=== PATIENT | female | born 1965 | race Caucasian/White ===

== ENCOUNTER 2016-08-21 15:55 | Inpatient (IN) | payer MEDICAID ==
[~2016-08-21] VITALS: Ht 167.6 cm; Wt 101.1 kg
[2016-08-21] MEDS ORDERED: DULO30CA2 PO (18:12)
[2016-08-21] MEDS ORDERED: SUMA100T PO (18:12)
[2016-08-21] MEDS ORDERED: VENL-67 PO (18:12)
[2016-08-21] MEDS ORDERED: PANT40TA25 PO (18:12)
[2016-08-21] MEDS ORDERED: OMEP20 PO (18:12)
[2016-08-21] MEDS ORDERED: GABA-531 PO (18:12)
[2016-08-21] MEDS ORDERED: TOPI100 PO (18:12)
[2016-08-21] MEDS ORDERED: CELE100 PO (18:12)
[2016-08-21] MEDS ORDERED: TRAM50TA4 PO (18:12)
[2016-08-21] MEDS ORDERED: HYDR-3971 PO (18:12)
[2016-08-21] MEDS ORDERED: TELM1TAB6 PO (18:12)
[2016-08-21] MEDS ORDERED: TAPE50TA9 PO (18:12)
[2016-08-21] MEDS ORDERED: LORA10TA7 PO (18:12)
[2016-08-21] MEDS ORDERED: ATOR40TA28 PO (18:12)
[2016-08-21] MEDS ORDERED: RANI150T7 PO (18:12)
[2016-08-21] MEDS ORDERED: MET750 PO (18:12)
[2016-08-21] MEDS ORDERED: BUTA1CAP53 PO (18:12)
[2016-08-21] MEDS ORDERED: DICL50TA9 PO (18:12)
[2016-08-21 18:36] LABS: BASOPHILS % (AUTO) 0.2 % (0.0-2.0); EOSINOPHILS % (AUTO) 1.6 % (1.0-6.0); HEMATOCRIT 39.4 % (36-46); HEMOGLOBIN 12.9 g/dL (12.0-16.0); LYMPHOCYTES # (AUTO) 3.4 K/uL (1.0-4.8); LYMPHOCYTES % (AUTO) 42.2 % (22.0-44.0); MEAN CORPUSCULAR HEMOGLOBIN 31.1 pg (26.0-34.0); MEAN CORPUSCULAR HGB CONC 32.8 G/dL (31.0-37.0); MEAN CORPUSCULAR VOLUME 95 fL (80-100); MONOCYTES # (AUTO) 0.5 K/uL (0.1-1.0); MONOCYTES % (AUTO) 6.4 % (2.0-9.0); NEUTROPHILS # (AUTO) 3.9 K/uL (1.8-7.7); NEUTROPHILS % (AUTO) 49.6 % (40.0-70.0); PLATELET COUNT (AUTO) 346 K/uL (150-450); RED BLOOD CELL COUNT(AUTO) 4.16 MIL/uL (4.00-5.20); RED CELL DISTRIBUTION WIDTH 13.2 % (11.5-14.5); WHITE BLOOD COUNT (AUTO) 7.9 K/uL (4.5-11.0)
[2016-08-21 18:49] LABS: ANION GAP 8 mmol/L (8-16); CALCIUM, TOTAL 8.8 mg/dL (8.8-10.5); CARBON DIOXIDE 30 mmol/L (22-29); CHLORIDE 103 mmol/L (98-107); CREATININE 0.88 mg/dL (0.60-1.30); GLOMERULAR FILTR. RATE CALC > 60 mL/min (>60); POTASSIUM 3.4 mmol/L (3.5-5.1); SODIUM SERUM 141 mmol/L (136-145); UREA NITROGEN, BLOOD 10 mg/dL (7-18)
[2016-08-21 18:54] LABS: ALANINE AMINOTRANSFERASE 42 U/L (12-78); ALBUMIN 3.9 g/dL (3.4-5.0); ASPARTATE AMINOTRANSFERASE 17 U/L (15-37); BILIRUBIN,TOTAL 0.3 mg/dL (0.1-1.0); TOTAL PROTEIN, SERUM 7.6 g/dL (6.4-8.2)
[2016-08-21] MEDS ORDERED: HYDROCODONE/ACETAMINOPHEN 5-325 MG TABLET PO ONE (19:45)
[2016-08-21] MEDS ORDERED: POTASSIUM CHLORIDE 20 MEQ ER TABLET PO ONE (19:45)
[2016-08-21] MEDS ORDERED: LORazepam 2 MG TABLET PO PRN (20:00)
[2016-08-21] MEDS ORDERED: ZOLPIDEM TARTRATE 10 MG TABLET PO PRN (20:00)
[2016-08-21] MEDS ORDERED: HALOPERIDOL 5 MG TABLET PO PRN (20:00)
[2016-08-21 22:26] VITALS: BP 154/88
[2016-08-21 23:05] LABS: APPEARANCE,URINE CLOUDY (CLEAR); GLUCOSE, URINE (UA) NEGATIVE (NEGATIVE); KETONES,URINE NEGATIVE (NEGATIVE); LEUKOCYTE ESTERASE ,URINE MODERATE (NEGATIVE); OCCULT BLOOD,URINE NEGATIVE (NEGATIVE); PH,URINE 6.5 (5.0-8.0); PROTEIN,URINE NEGATIVE (NEGATIVE)
[2016-08-21 23:09] LABS: ADD UA MICROSCOPIC YES
[2016-08-21 23:17] LABS: RBC,URINE 0-2 /HPF (0-2); SQUAMOUS EPITHELIAL CELL,UR Rare /LPF (None Seen)
[2016-08-22] MEDS ORDERED: INFLUENZA VIRUS VACCINE QVS 2016-17 (3YR+)/PF 60 MCG/0.5 ML SYRINGE IM ONE (01:00)
[2016-08-22 08:12] VITALS: BP 120/73
[2016-08-22] MEDS ORDERED: OMEPRAZOLE 20 MG CAPSULE PO SCH (09:00)
[2016-08-22] MEDS: LORATADINE 10 MG TABLET PO SCH (09:00)
[2016-08-22] MEDS: PANTOPRAZOLE SODIUM 40 MG DR TABLET PO SCH ×2 (09:00→14:02)
[2016-08-22] MEDS: TELMISARTAN 40 MG TABLET PO SCH (09:00)
[2016-08-22] MEDS: ATORVASTATIN CALCIUM 40 MG TABLET PO SCH (09:00)
[2016-08-22] MEDS ORDERED: ACETAMINOPHEN 325 MG TABLET PO PRN (12:45)
[2016-08-22] MEDS: LOPERAMIDE HCL 2 MG CAPSULE PO PRN ×3 (14:03→17:40)
[2016-08-22] MEDS: IBUPROFEN 600 MG TABLET PO PRN ×2 (14:04→17:40)
[2016-08-22 17:38] VITALS: BP 137/87
[2016-08-23 02:45] VITALS: BP 148/99
[2016-08-23] MEDS: LOPERAMIDE HCL 2 MG CAPSULE PO PRN ×3 (02:47→08:22)
[2016-08-23] MEDS: TELMISARTAN 40 MG TABLET PO SCH (08:23)
[2016-08-23] MEDS: VENLAFAXINE HCL 75 MG ER CAPSULE PO SCH (08:23)
[2016-08-23] MEDS: ATORVASTATIN CALCIUM 40 MG TABLET PO SCH (08:23)
[2016-08-23] MEDS: LORATADINE 10 MG TABLET PO SCH (08:23)
[2016-08-23] MEDS: PANTOPRAZOLE SODIUM 40 MG DR TABLET PO SCH (08:23)
[2016-08-23] MEDS: ARIPiprazole 2 MG TABLET PO SCH (08:23)
[2016-08-23 08:47] VITALS: BP 138/86
[2016-08-23 16:45] VITALS: BP 140/74
[2016-08-24 08:42] VITALS: BP 134/76
[2016-08-24] MEDS: VENLAFAXINE HCL 75 MG ER CAPSULE PO SCH (08:52)
[2016-08-24] MEDS: PANTOPRAZOLE SODIUM 40 MG DR TABLET PO SCH (08:52)
[2016-08-24] MEDS: ARIPiprazole 2 MG TABLET PO SCH (08:52)
[2016-08-24] MEDS: TELMISARTAN 40 MG TABLET PO SCH (08:52)
[2016-08-24] MEDS: ATORVASTATIN CALCIUM 40 MG TABLET PO SCH (08:52)
[2016-08-24] MEDS: LORATADINE 10 MG TABLET PO SCH (08:53)
[2016-08-24] MEDS: LOPERAMIDE HCL 2 MG CAPSULE PO PRN (09:57)
[2016-08-24] MEDS: IBUPROFEN 600 MG TABLET PO PRN ×2 (13:57→20:36)
[2016-08-24 17:00] VITALS: BP 132/73
[2016-08-25] MEDS ORDERED: ARIP2 PO (08:28)
[2016-08-25] MEDS ORDERED: VENL-67 PO (08:29)
[2016-08-25 08:53] VITALS: BP 137/90
[2016-08-25] MEDS: VENLAFAXINE HCL 75 MG ER CAPSULE PO SCH (09:10)
[2016-08-25] MEDS: IBUPROFEN 600 MG TABLET PO PRN (09:11)
[2016-08-25] MEDS: PANTOPRAZOLE SODIUM 40 MG DR TABLET PO SCH (09:11)
[2016-08-25] MEDS: ATORVASTATIN CALCIUM 40 MG TABLET PO SCH (09:11)
[2016-08-25] MEDS: ARIPiprazole 2 MG TABLET PO SCH (09:12)
[2016-08-25] MEDS: LORATADINE 10 MG TABLET PO SCH (09:12)
[2016-08-25] MEDS: TELMISARTAN 40 MG TABLET PO SCH (09:12)
[2016-08-25] MEDS: LOPERAMIDE HCL 2 MG CAPSULE PO PRN (09:14)
[2016-08-25 09:17] VITALS: BP 140/91
[2016-08-25 10:11] VITALS: BP 135/80
== END 2016-08-25 12:30 | disposition home or self-care (01) | DRG 751 ==
LOC: EEVIPCON 15:58 → EMS 15:58 → 3EI 20:08
PROVIDERS: ADMIT Psychiatry & Neurology Psychiatry; ATTEND Psychiatry & Neurology Psychiatry
DX: F33.2 Major depressive disorder, recurrent severe without psychotic features (principal); R45.851 Suicidal ideations; I10 Essential (primary) hypertension; G43.909 Migraine, unspecified, not intractable, without status migrainosus; F41.9 Anxiety disorder, unspecified; E78.5 Hyperlipidemia, unspecified; E66.9 Obesity, unspecified; K21.9 Gastro-esophageal reflux disease without esophagitis; E87.6 Hypokalemia; R19.7 Diarrhea, unspecified; J30.9 Allergic rhinitis, unspecified; Z28.21 Immunization not carried out because of patient refusal; Z79.899 Other long term (current) drug therapy; Z79.891 Long term (current) use of opiate analgesic; Z98.890 Other specified postprocedural states; Z68.36 Body mass index [BMI] 36.0-36.9, adult; Z98.84 Bariatric surgery status; Z62.819 Personal history of unspecified abuse in childhood; Z91.5 Personal history of self-harm; Z81.8 Family history of other mental and behavioral disorders
CPT/HCPCS: 87086; 99285; G0480

== ENCOUNTER 2018-09-24 13:47 | Inpatient (IN) | payer MEDICAID, OTHER ==
[~2018-09-24] VITALS: Ht 167.6 cm; Wt 101.2 kg
[~2018-09-24 13:47] MED LIST: ASEN5TAB6 SL; ATOR40TA28 PO; BUPR-93 PO; DIVA-78 PO; GABA-531 PO; LORA10TA7 PO; LOSA25TA41 PO; MULT-1239 PO; PANT40TA25 PO; TOPI100T37 PO; TRAZ150 PO; VENL-67 PO
[2018-09-24] MEDS ORDERED: OMEP20 PO (14:31)
[2018-09-24] MEDS ORDERED: GABA-533 PO (14:31)
[2018-09-24 15:12] LABS: BASOPHILS % (AUTO) 0.6 % (0.0-2.0); HEMOGLOBIN 13.4 g/dL (12.0-16.0); LYMPHOCYTES # (AUTO) 2.8 K/uL (1.0-4.8); MEAN CORPUSCULAR HEMOGLOBIN 31.3 pg (26.0-34.0); MEAN CORPUSCULAR HGB CONC 33.6 G/dL (31.0-37.0); MEAN CORPUSCULAR VOLUME 93 fL (80-100); MONOCYTES # (AUTO) 0.5 K/uL (0.1-1.0); MONOCYTES % (AUTO) 7.2 % (2.0-9.0); NEUTROPHILS # (AUTO) 4.1 K/uL (1.8-7.7); NEUTROPHILS % (AUTO) 54.2 % (40.0-70.0); PLATELET COUNT (AUTO) 315 K/uL (150-450); RED CELL DISTRIBUTION WIDTH 13.8 % (11.5-14.5)
[2018-09-24 15:27] LABS: ANION GAP 11 mmol/L (8-16); CALCIUM, TOTAL 8.9 mg/dL (8.8-10.5); CARBON DIOXIDE 26 mmol/L (22-29); CHLORIDE 105 mmol/L (98-107); CREATININE 0.81 mg/dL (0.60-1.30); GLOMERULAR FILTR. RATE CALC > 60 mL/min (>60); GLUCOSE,RANDOM 89 mg/dL (70-110); POTASSIUM 3.4 mmol/L (3.5-5.1); SODIUM SERUM 142 mmol/L (136-145); UREA NITROGEN, BLOOD 26 mg/dL (7-18)
[2018-09-24 15:38] LABS: ALANINE AMINOTRANSFERASE 34 U/L (12-78); ALBUMIN 3.9 g/dL (3.4-5.0); ALKALINE PHOSPHATASE 91 U/L (46-116); ASPARTATE AMINOTRANSFERASE 18 U/L (15-37); BILIRUBIN,TOTAL 0.3 mg/dL (0.1-1.0); TOTAL PROTEIN, SERUM 7.4 g/dL (6.4-8.2)
[2018-09-24 16:07] LABS: AMPHET/METH SCREEN,URINE NEGATIVE (NEGATIVE); BARBITURATE SCREEN, URINE NEGATIVE (NEGATIVE); BENZODIAZEPINES SCREEN,URINE NEGATIVE (NEGATIVE); CANNABINOID SCREEN,URINE NEGATIVE (NEGATIVE); COCAINE SCREEN,URINE NEGATIVE (NEGATIVE); METHADONE SCREEN, URINE NEGATIVE (NEGATIVE); OPIATE SCREEN,URINE NEGATIVE (NEGATIVE)
[2018-09-24 16:12] LABS: PHENCYCLIDINE SCREEN,URINE NEGATIVE (NEGATIVE)
[2018-09-24] MEDS ORDERED: HALOPERIDOL 5 MG TABLET PO ONE (16:45)
[2018-09-24] MEDS ORDERED: ZOLPIDEM TARTRATE 10 MG TABLET PO PRN (17:30)
[2018-09-24] MEDS ORDERED: HALOPERIDOL 5 MG TABLET PO PRN (17:30)
[2018-09-24] MEDS ORDERED: IBUPROFEN 400 MG TABLET PO PRN (20:45)
[2018-09-24] MEDS ORDERED: ALBUTEROL SULFATE HFA 90 MCG/PUFF 8 GM INHALER IH PRN (20:45)
[2018-09-24] MEDS ORDERED: MAG HYDROX/AL HYDROX/SIMETH ES 30 ML SUSPENSION UDCUP PO PRN (20:45)
[2018-09-24] MEDS ORDERED: DOCUSATE SODIUM 100 MG CAPSULE PO PRN (20:45)
[2018-09-24] MEDS ORDERED: MAGNESIUM HYDROXIDE SUSPENSION 30 ML UDCUP PO PRN (20:45)
[2018-09-24] MEDS ORDERED: ONDANSETRON HCL 4 MG TABLET PO PRN (20:45)
[2018-09-24] MEDS ORDERED: CloNIDine HCL 0.1 MG TABLET PO PRN (20:45)
[2018-09-24] MEDS ORDERED: NICOTINE 14 MG/24 HOUR PATCH TD PRN (20:45)
[2018-09-24] MEDS ORDERED: PETROLATUM,WHITE 28 GM JELLY TP PRN (20:45)
[2018-09-24] MEDS ORDERED: ACETAMINOPHEN 325 MG TABLET PO PRN (20:45)
[2018-09-24] MEDS ORDERED: GuaiFENesin/D-METHORPHAN [SUGAR-FREE] 200-20MG/10 ML SYRUP UDCUP PO PRN (20:45)
[2018-09-24] MEDS ORDERED: LOPERAMIDE HCL 2 MG CAPSULE PO PRN (20:45)
[2018-09-24 22:38] VITALS: BP 124/84
[2018-09-25 00:16] VITALS: BP 102/64
[2018-09-25 08:07] VITALS: BP 122/72
[2018-09-25] MEDS: ATORVASTATIN CALCIUM 40 MG TABLET PO SCH (08:21)
[2018-09-25] MEDS: LOSARTAN POTASSIUM 25 MG TABLET PO SCH (08:21)
[2018-09-25 08:52] LABS: BASOPHILS % (AUTO) 0.5 % (0.0-2.0); EOSINOPHILS % (AUTO) 1.5 % (1.0-6.0); HEMATOCRIT 41.4 % (36-46); HEMOGLOBIN 13.6 g/dL (12.0-16.0); LYMPHOCYTES # (AUTO) 3.4 K/uL (1.0-4.8); LYMPHOCYTES % (AUTO) 46.4 % (22.0-44.0); MEAN CORPUSCULAR HEMOGLOBIN 31.1 pg (26.0-34.0); MEAN CORPUSCULAR HGB CONC 32.9 G/dL (31.0-37.0); MEAN CORPUSCULAR VOLUME 95 fL (80-100); MONOCYTES # (AUTO) 0.5 K/uL (0.1-1.0); MONOCYTES % (AUTO) 6.9 % (2.0-9.0); NEUTROPHILS # (AUTO) 3.2 K/uL (1.8-7.7); NEUTROPHILS % (AUTO) 44.7 % (40.0-70.0); PLATELET COUNT (AUTO) 317 K/uL (150-450); RED BLOOD CELL COUNT(AUTO) 4.38 MIL/uL (4.00-5.20); RED CELL DISTRIBUTION WIDTH 13.8 % (11.5-14.5)
[2018-09-25 09:00] LABS: HEMOGLOBIN A1C 5.7 % (4.5-6.2)
[2018-09-25 09:12] LABS: ALANINE AMINOTRANSFERASE 28 U/L (12-78); ALBUMIN 3.6 g/dL (3.4-5.0); ALKALINE PHOSPHATASE 86 U/L (46-116); ANION GAP 7 mmol/L (8-16); ASPARTATE AMINOTRANSFERASE 14 U/L (15-37); BILIRUBIN,TOTAL 0.2 mg/dL (0.1-1.0); CALCIUM, TOTAL 9.1 mg/dL (8.8-10.5); CARBON DIOXIDE 31 mmol/L (22-29); CHLORIDE 108 mmol/L (98-107); CHOL/HDL RATIO 5.3 (3.9-5.7); CHOLESTEROL 252 mg/dL (131-200); CREATININE 0.83 mg/dL (0.60-1.30); GLOMERULAR FILTR. RATE CALC > 60 mL/min (>60); GLUCOSE,RANDOM 82 mg/dL (70-110); HDL CHOLESTEROL 48 mg/dL (40-60); LDL CHOL (CALC.) 160 mg/dL (0-130); POTASSIUM 4.3 mmol/L (3.5-5.1); SODIUM SERUM 146 mmol/L (136-145); THYROID STIMULATING HORMONE 1.39 uIU/mL (0.36-3.74); TRIGLYCERIDES 220 mg/dL (15-150); UREA NITROGEN, BLOOD 28 mg/dL (7-18)
[2018-09-25] MEDS: BuPROPion HCL XL 150 MG ER TABLET PO SCH (12:09)
[2018-09-25] MEDS: VENLAFAXINE HCL 150 MG ER CAPSULE PO SCH (12:09)
[2018-09-25] MEDS: ASENAPINE 10 MG SUBLINGUAL TABLET SL SCH ×2 (12:09→17:14)
[2018-09-25] MEDS: GABAPENTIN 300 MG CAPSULE PO SCH ×2 (13:23→17:14)
[2018-09-25 16:30] VITALS: BP 113/74
[2018-09-25] MEDS: TraZODone HCL 100 MG TABLET PO SCH (21:40)
[2018-09-25] MEDS: MIRTAZAPINE 30 MG TABLET PO SCH (21:40)
[2018-09-25] MEDS: DIVALPROEX SODIUM 500 MG ER TABLET PO SCH (21:41)
[2018-09-26 01:07] VITALS: BP 110/68
[2018-09-26 08:15] VITALS: BP 119/73
[2018-09-26] MEDS: ASENAPINE 10 MG SUBLINGUAL TABLET SL SCH ×2 (08:45→16:09)
[2018-09-26] MEDS: GABAPENTIN 300 MG CAPSULE PO SCH ×3 (08:45→16:09)
[2018-09-26] MEDS: BuPROPion HCL XL 150 MG ER TABLET PO SCH (08:45)
[2018-09-26] MEDS: ATORVASTATIN CALCIUM 40 MG TABLET PO SCH (08:46)
[2018-09-26] MEDS: LOSARTAN POTASSIUM 25 MG TABLET PO SCH (08:47)
[2018-09-26] MEDS: VENLAFAXINE HCL 150 MG ER CAPSULE PO SCH (09:08)
[2018-09-26] MEDS: LORazepam 2 MG TABLET PO PRN ×2 (13:49→18:22)
[2018-09-26 16:07] VITALS: BP 118/77
[2018-09-26] MEDS: MIRTAZAPINE 30 MG TABLET PO SCH (20:45)
[2018-09-26] MEDS: DIVALPROEX SODIUM 500 MG ER TABLET PO SCH (20:45)
[2018-09-26] MEDS: TraZODone HCL 100 MG TABLET PO SCH (20:45)
[2018-09-27 00:28] VITALS: BP 121/68
[2018-09-27 08:17] VITALS: BP 119/68
[2018-09-27 08:36] LABS: ANION GAP 6 mmol/L (8-16); CARBON DIOXIDE 31 mmol/L (22-29); CHLORIDE 109 mmol/L (98-107); CREATININE 0.73 mg/dL (0.60-1.30); GLOMERULAR FILTR. RATE CALC > 60 mL/min (>60); GLUCOSE,RANDOM 83 mg/dL (70-110); POTASSIUM 4.2 mmol/L (3.5-5.1); SODIUM SERUM 146 mmol/L (136-145); UREA NITROGEN, BLOOD 25 mg/dL (7-18)
[2018-09-27] MEDS: GABAPENTIN 300 MG CAPSULE PO SCH ×2 (08:50→13:37)
[2018-09-27] MEDS: BuPROPion HCL XL 150 MG ER TABLET PO SCH (08:50)
[2018-09-27] MEDS: ATORVASTATIN CALCIUM 40 MG TABLET PO SCH (08:51)
[2018-09-27] MEDS: LOSARTAN POTASSIUM 25 MG TABLET PO SCH (08:51)
[2018-09-27] MEDS: ASENAPINE 10 MG SUBLINGUAL TABLET SL SCH (08:51)
[2018-09-27] MEDS: VENLAFAXINE HCL 150 MG ER CAPSULE PO SCH (08:51)
[2018-09-27] MEDS ORDERED: ASEN10TA8 SL (11:02)
[2018-09-27] MEDS ORDERED: DIVA500T52 PO (11:03)
[2018-09-27] MEDS ORDERED: MIRT30 PO (11:04)
[2018-09-27] MEDS ORDERED: TRAZ-220 PO (11:07)
[2018-09-27] MEDS ORDERED: VENL-68 PO (11:09)
== END 2018-09-27 14:30 | disposition home or self-care (01) | DRG 754 ==
LOC: EMS 13:49 → B3A 18:46 → B2S 20:22
PROVIDERS: ADMIT Psychiatry & Neurology Child & Adolescent Psychiatry; ATTEND Psychiatry & Neurology Child & Adolescent Psychiatry
DX: F32.9 Major depressive disorder, single episode, unspecified (principal); E87.0 Hyperosmolality and hypernatremia; R45.851 Suicidal ideations; E78.00 Pure hypercholesterolemia, unspecified; E78.5 Hyperlipidemia, unspecified; E87.6 Hypokalemia; F43.10 Post-traumatic stress disorder, unspecified; G43.909 Migraine, unspecified, not intractable, without status migrainosus; I10 Essential (primary) hypertension; J30.2 Other seasonal allergic rhinitis; K21.9 Gastro-esophageal reflux disease without esophagitis; M19.90 Unspecified osteoarthritis, unspecified site; M81.0 Age-related osteoporosis without current pathological fracture; Z98.84 Bariatric surgery status
CPT/HCPCS: 83036; 84443; G0480

== ENCOUNTER 2018-10-26 12:17 | Inpatient (IN) | payer MEDICAID, OTHER ==
[~2018-10-26] VITALS: Ht 167.6 cm; Wt 106.1 kg
[~2018-10-26 12:17] MED LIST changes: +ASEN10TA8 SL; -ASEN5TAB6 SL; -DIVA-78 PO; +DIVA500T52 PO; -LORA10TA7 PO; +MIRT30 PO; -MULT-1239 PO; -PANT40TA25 PO; -TOPI100T37 PO; +TRAZ-220 PO; -TRAZ150 PO; -VENL-67 PO; +VENL-68 PO
[2018-10-26 13:11] LABS: BASOPHILS % (AUTO) 0.6 % (0.0-2.0); EOSINOPHILS % (AUTO) 1.7 % (1.0-6.0); HEMATOCRIT 39.7 % (36-46); HEMOGLOBIN 13.1 g/dL (12.0-16.0); LYMPHOCYTES # (AUTO) 4.1 K/uL (1.0-4.8); LYMPHOCYTES % (AUTO) 52.3 % (22.0-44.0); MEAN CORPUSCULAR HEMOGLOBIN 30.9 pg (26.0-34.0); MEAN CORPUSCULAR VOLUME 94 fL (80-100); MONOCYTES # (AUTO) 0.5 K/uL (0.1-1.0); MONOCYTES % (AUTO) 5.9 % (2.0-9.0); NEUTROPHILS # (AUTO) 3.1 K/uL (1.8-7.7); NEUTROPHILS % (AUTO) 39.5 % (40.0-70.0); PLATELET COUNT (AUTO) 314 K/uL (150-450); RED BLOOD CELL COUNT(AUTO) 4.23 MIL/uL (4.00-5.20); RED CELL DISTRIBUTION WIDTH 14.3 % (11.5-14.5)
[2018-10-26 13:28] LABS: ANION GAP 4 mmol/L (8-16); CALCIUM, TOTAL 8.8 mg/dL (8.8-10.5); CARBON DIOXIDE 29 mmol/L (22-29); CHLORIDE 106 mmol/L (98-107); CREATININE 0.77 mg/dL (0.60-1.30); GLOMERULAR FILTR. RATE CALC > 60 mL/min (>60); GLUCOSE,RANDOM 91 mg/dL (70-110); POTASSIUM 3.7 mmol/L (3.5-5.1); SODIUM SERUM 139 mmol/L (136-145); UREA NITROGEN, BLOOD 20 mg/dL (7-18)
[2018-10-26 13:33] LABS: ALANINE AMINOTRANSFERASE 34 U/L (12-78); ALBUMIN 3.6 g/dL (3.4-5.0); ALKALINE PHOSPHATASE 80 U/L (46-116); ASPARTATE AMINOTRANSFERASE 14 U/L (15-37); BILIRUBIN,TOTAL 0.2 mg/dL (0.1-1.0); TOTAL PROTEIN, SERUM 7.3 g/dL (6.4-8.2); VALPROIC ACID 16 mcg/mL (50-100)
[2018-10-26 14:42] LABS: AMPHET/METH SCREEN,URINE NEGATIVE (NEGATIVE); BARBITURATE SCREEN, URINE NEGATIVE (NEGATIVE); BENZODIAZEPINES SCREEN,URINE NEGATIVE (NEGATIVE); CANNABINOID SCREEN,URINE NEGATIVE (NEGATIVE); COCAINE SCREEN,URINE NEGATIVE (NEGATIVE); METHADONE SCREEN, URINE NEGATIVE (NEGATIVE); OPIATE SCREEN,URINE NEGATIVE (NEGATIVE)
[2018-10-26 14:43] LABS: PHENCYCLIDINE SCREEN,URINE NEGATIVE (NEGATIVE)
[2018-10-26] MEDS ORDERED: ZOLPIDEM TARTRATE 10 MG TABLET PO PRN (17:00)
[2018-10-26] MEDS ORDERED: HALOPERIDOL 5 MG TABLET PO PRN (17:00)
[2018-10-26] MEDS ORDERED: PNEUMOCOCCAL VACCINE POLYVALENT 0.5 ML VIAL [PPSV23] IM ONE (21:30)
[2018-10-26 21:38] VITALS: BP 120/74
[2018-10-26] MEDS: GABAPENTIN 300 MG CAPSULE PO SCH (21:52)
[2018-10-26] MEDS: MIRTAZAPINE 30 MG TABLET PO SCH (21:53)
[2018-10-26] MEDS: TraZODone HCL 100 MG TABLET PO SCH (21:53)
[2018-10-26] MEDS: DIVALPROEX SODIUM 500 MG ER TABLET PO SCH (21:53)
[2018-10-26] MEDS ORDERED: PETROLATUM,WHITE 28 GM JELLY TP PRN (22:00)
[2018-10-26] MEDS ORDERED: DOCUSATE SODIUM 100 MG CAPSULE PO PRN (22:00)
[2018-10-26] MEDS ORDERED: ONDANSETRON HCL 4 MG TABLET PO PRN (22:00)
[2018-10-26] MEDS ORDERED: LOPERAMIDE HCL 2 MG CAPSULE PO PRN (22:00)
[2018-10-26] MEDS ORDERED: CloNIDine HCL 0.1 MG TABLET PO PRN (22:00)
[2018-10-26] MEDS ORDERED: GuaiFENesin/D-METHORPHAN [SUGAR-FREE] 200-20MG/10 ML SYRUP UDCUP PO PRN (22:00)
[2018-10-26] MEDS ORDERED: MAGNESIUM HYDROXIDE SUSPENSION 30 ML UDCUP PO PRN (22:00)
[2018-10-26] MEDS ORDERED: ACETAMINOPHEN 325 MG TABLET PO PRN (22:00)
[2018-10-26] MEDS ORDERED: ALBUTEROL SULFATE HFA 90 MCG/PUFF 8 GM INHALER IH PRN (22:00)
[2018-10-26] MEDS: ASENAPINE 10 MG SUBLINGUAL TABLET SL SCH (22:01)
[2018-10-27 04:18] VITALS: BP 131/89
[2018-10-27 08:12] VITALS: BP 137/68
[2018-10-27] MEDS: BuPROPion HCL XL 150 MG ER TABLET PO SCH (09:09)
[2018-10-27] MEDS: VENLAFAXINE HCL 150 MG ER CAPSULE PO SCH (09:09)
[2018-10-27] MEDS: ASENAPINE 10 MG SUBLINGUAL TABLET SL SCH ×2 (09:09→17:20)
[2018-10-27] MEDS: GABAPENTIN 300 MG CAPSULE PO SCH ×3 (09:09→17:20)
[2018-10-27] MEDS ORDERED: SUMAtriptan SUCCINATE 25 MG TABLET PO PRN (10:45)
[2018-10-27 12:08] VITALS: BP 124/78
[2018-10-27] MEDS: IBUPROFEN 400 MG TABLET PO PRN (12:08)
[2018-10-27] MEDS: LORazepam 1 MG TABLET PO PRN ×2 (12:11→17:19)
[2018-10-27 16:08] VITALS: BP 135/88
[2018-10-27] MEDS: DIVALPROEX SODIUM 500 MG ER TABLET PO SCH (20:10)
[2018-10-27] MEDS: TraZODone HCL 100 MG TABLET PO SCH (20:11)
[2018-10-27] MEDS: MIRTAZAPINE 30 MG TABLET PO SCH (20:11)
[2018-10-28 06:10] VITALS: BP 125/84
[2018-10-28 06:18] VITALS: BP 123/75
[2018-10-28] MEDS: LORazepam 1 MG TABLET PO PRN ×2 (06:18→19:23)
[2018-10-28] MEDS: IBUPROFEN 400 MG TABLET PO PRN ×2 (06:18→17:12)
[2018-10-28 08:05] VITALS: BP 134/66
[2018-10-28] MEDS: GABAPENTIN 300 MG CAPSULE PO SCH ×3 (08:32→16:45)
[2018-10-28] MEDS: VENLAFAXINE HCL 150 MG ER CAPSULE PO SCH (08:32)
[2018-10-28] MEDS: ATORVASTATIN CALCIUM 40 MG TABLET PO SCH (08:32)
[2018-10-28] MEDS: LOSARTAN POTASSIUM 25 MG TABLET PO SCH (08:32)
[2018-10-28] MEDS: BuPROPion HCL XL 150 MG ER TABLET PO SCH (08:32)
[2018-10-28] MEDS: ASENAPINE 10 MG SUBLINGUAL TABLET SL SCH ×2 (08:37→16:45)
[2018-10-28] MEDS ORDERED: ARIPiprazole ER SUSPENSION 400 MG PRE-FILLED DUAL CHAMBER SYRINGE IM SCH (16:00)
[2018-10-28 16:29] VITALS: BP 140/75
[2018-10-28] MEDS: DIVALPROEX SODIUM 500 MG ER TABLET PO SCH (20:14)
[2018-10-28] MEDS: TraZODone HCL 100 MG TABLET PO SCH (20:15)
[2018-10-28] MEDS: MIRTAZAPINE 30 MG TABLET PO SCH (20:15)
[2018-10-29 05:19] VITALS: BP 139/82
[2018-10-29 08:08] VITALS: BP 148/72
[2018-10-29] MEDS: VENLAFAXINE HCL 150 MG ER CAPSULE PO SCH (09:47)
[2018-10-29] MEDS: ASENAPINE 10 MG SUBLINGUAL TABLET SL SCH ×2 (09:47→17:34)
[2018-10-29] MEDS: GABAPENTIN 300 MG CAPSULE PO SCH ×3 (09:47→17:29)
[2018-10-29] MEDS: BuPROPion HCL XL 150 MG ER TABLET PO SCH (09:47)
[2018-10-29] MEDS: ATORVASTATIN CALCIUM 40 MG TABLET PO SCH (09:47)
[2018-10-29] MEDS: LOSARTAN POTASSIUM 25 MG TABLET PO SCH (09:47)
[2018-10-29 12:00] VITALS: BP 136/84
[2018-10-29] MEDS: LORazepam 1 MG TABLET PO PRN ×2 (12:05→17:29)
[2018-10-29] MEDS: MAG HYDROX/AL HYDROX/SIMETH ES 30 ML SUSPENSION UDCUP PO PRN ×2 (12:06→16:35)
[2018-10-29 16:06] VITALS: BP 141/90
[2018-10-29] MEDS: TraZODone HCL 100 MG TABLET PO SCH (20:06)
[2018-10-29] MEDS: DIVALPROEX SODIUM 500 MG ER TABLET PO SCH (20:06)
[2018-10-29] MEDS: MIRTAZAPINE 30 MG TABLET PO SCH (20:06)
[2018-10-30 00:50] VITALS: BP 125/85
[2018-10-30 08:07] VITALS: BP 141/69
[2018-10-30] MEDS: ATORVASTATIN CALCIUM 40 MG TABLET PO SCH (08:27)
[2018-10-30] MEDS: GABAPENTIN 300 MG CAPSULE PO SCH ×3 (08:27→16:02)
[2018-10-30] MEDS: LOSARTAN POTASSIUM 25 MG TABLET PO SCH (08:27)
[2018-10-30] MEDS: BuPROPion HCL XL 150 MG ER TABLET PO SCH (08:27)
[2018-10-30] MEDS: VENLAFAXINE HCL 150 MG ER CAPSULE PO SCH (08:27)
[2018-10-30] MEDS: ASENAPINE 10 MG SUBLINGUAL TABLET SL SCH ×2 (08:27→16:02)
[2018-10-30] MEDS: LORazepam 1 MG TABLET PO PRN ×2 (10:28→15:55)
[2018-10-30 12:22] VITALS: BP 124/88
[2018-10-30] MEDS: IBUPROFEN 400 MG TABLET PO PRN (12:22)
[2018-10-30] MEDS: BACITRACIN 28.4 GM OINTMENT TP PRN (16:03)
[2018-10-30 16:06] VITALS: BP 129/77
[2018-10-30] MEDS: MIRTAZAPINE 30 MG TABLET PO SCH (20:25)
[2018-10-30] MEDS: DIVALPROEX SODIUM 500 MG ER TABLET PO SCH (20:25)
[2018-10-30] MEDS: TraZODone HCL 100 MG TABLET PO SCH (20:25)
[2018-10-31 06:33] VITALS: BP 129/75
[2018-10-31] MEDS: IBUPROFEN 400 MG TABLET PO PRN ×2 (06:34→19:01)
[2018-10-31] MEDS: LORazepam 1 MG TABLET PO PRN ×3 (06:34→19:00)
[2018-10-31 08:30] VITALS: BP 122/74
[2018-10-31] MEDS: GABAPENTIN 300 MG CAPSULE PO SCH ×3 (08:35→16:23)
[2018-10-31] MEDS: RANITIDINE HCL 150 MG TABLET PO SCH (08:35)
[2018-10-31] MEDS: VENLAFAXINE HCL 150 MG ER CAPSULE PO SCH (08:35)
[2018-10-31] MEDS: ASENAPINE 10 MG SUBLINGUAL TABLET SL SCH ×2 (08:35→16:23)
[2018-10-31] MEDS: BuPROPion HCL XL 150 MG ER TABLET PO SCH (08:35)
[2018-10-31] MEDS: ATORVASTATIN CALCIUM 40 MG TABLET PO SCH (08:35)
[2018-10-31] MEDS: LOSARTAN POTASSIUM 25 MG TABLET PO SCH (08:36)
[2018-10-31] MEDS: BACITRACIN 28.4 GM OINTMENT TP PRN (08:43)
[2018-10-31 16:10] VITALS: BP 121/76
[2018-10-31] MEDS: DIVALPROEX SODIUM 500 MG ER TABLET PO SCH (20:03)
[2018-10-31] MEDS: MIRTAZAPINE 30 MG TABLET PO SCH (20:03)
[2018-10-31] MEDS: TraZODone HCL 100 MG TABLET PO SCH (20:04)
[2018-11-01] MEDS: LORazepam 1 MG TABLET PO PRN ×4 (00:40→17:50)
[2018-11-01 06:05] VITALS: BP 138/80
[2018-11-01] MEDS: IBUPROFEN 400 MG TABLET PO PRN ×2 (06:09→17:51)
[2018-11-01 08:12] VITALS: BP 129/82
[2018-11-01] MEDS: GABAPENTIN 300 MG CAPSULE PO SCH ×3 (08:42→16:04)
[2018-11-01] MEDS: RANITIDINE HCL 150 MG TABLET PO SCH (08:42)
[2018-11-01] MEDS: VENLAFAXINE HCL 150 MG ER CAPSULE PO SCH (08:42)
[2018-11-01] MEDS: BuPROPion HCL XL 150 MG ER TABLET PO SCH (08:42)
[2018-11-01] MEDS: ASENAPINE 10 MG SUBLINGUAL TABLET SL SCH ×2 (08:42→16:05)
[2018-11-01] MEDS: ATORVASTATIN CALCIUM 40 MG TABLET PO SCH (08:42)
[2018-11-01] MEDS: LOSARTAN POTASSIUM 25 MG TABLET PO SCH (08:46)
[2018-11-01] MEDS: BACITRACIN 28.4 GM OINTMENT TP PRN (16:05)
[2018-11-01 16:10] VITALS: BP 127/68
[2018-11-01] MEDS: DIVALPROEX SODIUM 500 MG ER TABLET PO SCH (20:10)
[2018-11-01] MEDS: MIRTAZAPINE 30 MG TABLET PO SCH (20:10)
[2018-11-01] MEDS: TraZODone HCL 100 MG TABLET PO SCH (20:10)
[2018-11-01] MEDS ORDERED: TRAZ-220 PO (21:14)
[2018-11-01] MEDS ORDERED: MIRT30 PO (21:14)
[2018-11-01] MEDS ORDERED: DIVA500T52 PO (21:14)
[2018-11-01] MEDS ORDERED: BUPR-93 PO (21:14)
[2018-11-01] MEDS ORDERED: GABA-531 PO (21:14)
[2018-11-01] MEDS ORDERED: ASEN10TA8 SL (21:14)
[2018-11-01] MEDS ORDERED: VENL-68 PO (21:14)
[2018-11-01] MEDS ORDERED: ATOR40TA28 PO (21:14)
[2018-11-01] MEDS ORDERED: RANI150T7 PO (21:14)
[2018-11-01] MEDS ORDERED: LOSA25TA2 PO (21:14)
[2018-11-01] MEDS ORDERED: ARIP400S3 IM (21:14)
[2018-11-02 02:43] VITALS: BP 137/70
[2018-11-02] MEDS: LORazepam 1 MG TABLET PO PRN (02:50)
[2018-11-02] MEDS: IBUPROFEN 400 MG TABLET PO PRN (02:50)
== END 2018-11-02 07:30 | disposition home or self-care (01) | DRG 750 ==
LOC: EMS 12:17 → B3A 17:50
PROVIDERS: ADMIT Psychiatry & Neurology Child & Adolescent Psychiatry; ATTEND Psychiatry & Neurology Child & Adolescent Psychiatry
DX: F25.0 Schizoaffective disorder, bipolar type (principal); R45.851 Suicidal ideations; G43.909 Migraine, unspecified, not intractable, without status migrainosus; G89.29 Other chronic pain; M81.0 Age-related osteoporosis without current pathological fracture; K59.00 Constipation, unspecified; K21.9 Gastro-esophageal reflux disease without esophagitis; J45.909 Unspecified asthma, uncomplicated; I10 Essential (primary) hypertension; E78.5 Hyperlipidemia, unspecified; E78.00 Pure hypercholesterolemia, unspecified; M19.90 Unspecified osteoarthritis, unspecified site; Z98.84 Bariatric surgery status
CPT/HCPCS: 90732; G0480; J0401

== ENCOUNTER 2019-04-18 14:38 | Inpatient (IN) | payer MEDICAID, OTHER ==
[~2019-04-18] VITALS: Ht 167.6 cm; Wt 113.5 kg
[~2019-04-18 14:38] MED LIST changes: +ARIP400S3 IM; +LOSA25TA2 PO; -LOSA25TA41 PO; +RANI150T7 PO
[2019-04-18 16:35] LABS: BASOPHILS % (AUTO) 0.6 % (0.0-2.0); EOSINOPHILS % (AUTO) 2.9 % (1.0-6.0); HEMATOCRIT 38.3 % (36-46); HEMOGLOBIN 12.9 g/dL (12.0-16.0); LYMPHOCYTES # (AUTO) 4.2 K/uL (1.0-4.8); LYMPHOCYTES % (AUTO) 49.8 % (22.0-44.0); MEAN CORPUSCULAR HEMOGLOBIN 31.4 pg (26.0-34.0); MEAN CORPUSCULAR HGB CONC 33.7 G/dL (31.0-37.0); MEAN CORPUSCULAR VOLUME 93 fL (80-100); MONOCYTES # (AUTO) 0.6 K/uL (0.1-1.0); MONOCYTES % (AUTO) 7.2 % (2.0-9.0); NEUTROPHILS # (AUTO) 3.4 K/uL (1.8-7.7); NEUTROPHILS % (AUTO) 39.5 % (40.0-70.0); PLATELET COUNT (AUTO) 316 K/uL (150-450); RED CELL DISTRIBUTION WIDTH 13.8 % (11.5-14.5)
[2019-04-18 16:52] LABS: ANION GAP 9 mmol/L (8-16); CALCIUM, TOTAL 8.4 mg/dL (8.8-10.5); CARBON DIOXIDE 27 mmol/L (22-29); CHLORIDE 105 mmol/L (98-107); CREATININE 0.75 mg/dL (0.60-1.30); GLOMERULAR FILTR. RATE CALC > 60 mL/min (>60); GLUCOSE,RANDOM 100 mg/dL (70-110); POTASSIUM 3.7 mmol/L (3.5-5.1); SODIUM SERUM 141 mmol/L (136-145); UREA NITROGEN, BLOOD 17 mg/dL (7-18)
[2019-04-18 17:05] LABS: ALANINE AMINOTRANSFERASE 31 U/L (12-78); ALBUMIN 3.6 g/dL (3.4-5.0); ALKALINE PHOSPHATASE 84 U/L (46-116); ASPARTATE AMINOTRANSFERASE 14 U/L (15-37); BILIRUBIN,TOTAL 0.2 mg/dL (0.1-1.0); HCG,QUANTITATIVE 3 mIU/mL (0-6); TOTAL PROTEIN, SERUM 7.3 g/dL (6.4-8.2); VALPROIC ACID 17 mcg/mL (50-100)
[2019-04-18 18:05] LABS: AMPHET/METH SCREEN,URINE NEGATIVE (NEGATIVE); BARBITURATE SCREEN, URINE NEGATIVE (NEGATIVE); BENZODIAZEPINES SCREEN,URINE NEGATIVE (NEGATIVE); CANNABINOID SCREEN,URINE NEGATIVE (NEGATIVE); COCAINE SCREEN,URINE NEGATIVE (NEGATIVE); METHADONE SCREEN, URINE NEGATIVE (NEGATIVE); OPIATE SCREEN,URINE NEGATIVE (NEGATIVE); PHENCYCLIDINE SCREEN,URINE NEGATIVE (NEGATIVE)
[2019-04-18] MEDS ORDERED: OLANZapine 5 MG RAPDIS TABLET PO PRN (18:15)
[2019-04-18] MEDS ORDERED: ZOLPIDEM TARTRATE 10 MG TABLET PO PRN (18:15)
[2019-04-18] MEDS ORDERED: MAG HYDROX/AL HYDROX/SIMETH ES 30 ML SUSPENSION UDCUP PO PRN (18:15)
[2019-04-18] MEDS ORDERED: TUBERCULIN, PURIFIED PROTEIN DERIVATIVE 5 TU/0.1 ML SYRINGE ID ONE (18:15)
[2019-04-18] MEDS ORDERED: MAGNESIUM HYDROXIDE SUSPENSION 30 ML UDCUP PO PRN (18:15)
[2019-04-18] MEDS ORDERED: HydrOXYzine PAMOATE 50 MG CAPSULE PO PRN (18:15)
[2019-04-18] MEDS ORDERED: GuaiFENesin/D-METHORPHAN [SUGAR-FREE] 200-20MG/10 ML SYRUP UDCUP PO PRN (18:15)
[2019-04-18] MEDS ORDERED: PROMETHAZINE HCL 25 MG TABLET PO PRN (18:15)
[2019-04-18] MEDS ORDERED: LOPERAMIDE HCL 2 MG CAPSULE PO PRN (18:15)
[2019-04-18] MEDS ORDERED: DIVALPROEX SODIUM 500 MG ER TABLET PO SCH (21:00)
[2019-04-18] MEDS: GABAPENTIN 300 MG CAPSULE PO SCH (22:22)
[2019-04-18] MEDS: ASENAPINE 10 MG SUBLINGUAL TABLET SL SCH (22:22)
[2019-04-18] MEDS: MIRTAZAPINE 15 MG TABLET PO SCH (22:22)
[2019-04-18] MEDS: THIAMINE HCL 100 MG TABLET PO SCH (22:22)
[2019-04-18] MEDS: TraZODone HCL 50 MG TABLET PO SCH (22:22)
[2019-04-18 22:30] VITALS: BP 127/76
[2019-04-19] MEDS ORDERED: INFLUENZA VIRUS VACCINE QVS 2019-20 (3YR+)/PF 60 MCG/0.5 ML SYRINGE IM ONE (05:15)
[2019-04-19 06:49] VITALS: BP 124/76
[2019-04-19 07:59] LABS: BASOPHILS % (AUTO) 0.5 % (0.0-2.0); EOSINOPHILS % (AUTO) 2.9 % (1.0-6.0); HEMOGLOBIN 12.8 g/dL (12.0-16.0); LYMPHOCYTES # (AUTO) 3.4 K/uL (1.0-4.8); LYMPHOCYTES % (AUTO) 42.6 % (22.0-44.0); MEAN CORPUSCULAR HEMOGLOBIN 31.3 pg (26.0-34.0); MEAN CORPUSCULAR HGB CONC 33.6 G/dL (31.0-37.0); MEAN CORPUSCULAR VOLUME 93 fL (80-100); MONOCYTES # (AUTO) 0.6 K/uL (0.1-1.0); MONOCYTES % (AUTO) 8.1 % (2.0-9.0); NEUTROPHILS # (AUTO) 3.6 K/uL (1.8-7.7); NEUTROPHILS % (AUTO) 45.9 % (40.0-70.0); PLATELET COUNT (AUTO) 292 K/uL (150-450); RED BLOOD CELL COUNT(AUTO) 4.09 MIL/uL (4.00-5.20); RED CELL DISTRIBUTION WIDTH 13.9 % (11.5-14.5)
[2019-04-19 08:21] LABS: ALANINE AMINOTRANSFERASE 30 U/L (12-78); ALBUMIN 3.2 g/dL (3.4-5.0); ALKALINE PHOSPHATASE 77 U/L (46-116); ANION GAP 8 mmol/L (8-16); ASPARTATE AMINOTRANSFERASE 12 U/L (15-37); BILIRUBIN,TOTAL 0.2 mg/dL (0.1-1.0); CALCIUM, TOTAL 8.6 mg/dL (8.8-10.5); CARBON DIOXIDE 29 mmol/L (22-29); CHLORIDE 107 mmol/L (98-107); CHOL/HDL RATIO 5.7 (3.9-5.7); CHOLESTEROL 255 mg/dL (131-200); CREATININE 0.67 mg/dL (0.60-1.30); FREE T4 (FREE THYROXINE) 0.74 ng/dL (0.76-1.46); GLOMERULAR FILTR. RATE CALC > 60 mL/min (>60); GLUCOSE,RANDOM 87 mg/dL (70-110); HDL CHOLESTEROL 45 mg/dL (40-60); POTASSIUM 3.6 mmol/L (3.5-5.1); SODIUM SERUM 144 mmol/L (136-145); THYROID STIMULATING HORMONE 1.46 uIU/mL (0.36-3.74); TOTAL PROTEIN, SERUM 6.7 g/dL (6.4-8.2); TRIGLYCERIDES 565 mg/dL (15-150); UREA NITROGEN, BLOOD 18 mg/dL (7-18); VALPROIC ACID 26 mcg/mL (50-100)
[2019-04-19 08:35] VITALS: BP 128/82
[2019-04-19] MEDS: BuPROPion HCL XL 150 MG ER TABLET PO SCH (08:39)
[2019-04-19] MEDS: GABAPENTIN 300 MG CAPSULE PO SCH ×4 (08:39→20:31)
[2019-04-19] MEDS: MULTIVITAMINS WITH MINERALS, THERAPEUTIC TABLET PO SCH (08:39)
[2019-04-19] MEDS: FOLIC ACID 1 MG TABLET PO SCH (08:39)
[2019-04-19] MEDS: ASENAPINE 10 MG SUBLINGUAL TABLET SL SCH ×2 (08:39→20:30)
[2019-04-19] MEDS: THIAMINE HCL 100 MG TABLET PO SCH ×2 (08:39→16:53)
[2019-04-19] MEDS ORDERED: VENLAFAXINE HCL 150 MG ER CAPSULE PO SCH (09:00)
[2019-04-19] MEDS: VENLAFAXINE HCL 75 MG ER CAPSULE PO SCH (10:32)
[2019-04-19] MEDS: LORazepam 2 MG TABLET PO PRN (14:03)
[2019-04-19] MEDS ORDERED: ARIPiprazole ER SUSPENSION 400 MG PRE-FILLED DUAL CHAMBER SYRINGE IM ONE (15:45)
[2019-04-19 16:19] VITALS: BP 108/70
[2019-04-19] MEDS: MIRTAZAPINE 15 MG TABLET PO SCH (20:30)
[2019-04-19] MEDS: DIVALPROEX SODIUM 500 MG ER TABLET PO SCH (20:31)
[2019-04-19] MEDS: ATORVASTATIN CALCIUM 40 MG TABLET PO SCH (20:31)
[2019-04-19] MEDS: TraZODone HCL 50 MG TABLET PO SCH (20:31)
[2019-04-20 06:17] VITALS: BP 134/72
[2019-04-20 08:19] VITALS: BP 151/80
[2019-04-20] MEDS: THIAMINE HCL 100 MG TABLET PO SCH ×2 (08:44→16:23)
[2019-04-20] MEDS: GABAPENTIN 300 MG CAPSULE PO SCH ×3 (08:44→16:23)
[2019-04-20] MEDS: VENLAFAXINE HCL 75 MG ER CAPSULE PO SCH (08:44)
[2019-04-20] MEDS: ATORVASTATIN CALCIUM 40 MG TABLET PO SCH (08:44)
[2019-04-20] MEDS: BuPROPion HCL XL 150 MG ER TABLET PO SCH (08:44)
[2019-04-20] MEDS: ASENAPINE 10 MG SUBLINGUAL TABLET SL SCH (08:44)
[2019-04-20] MEDS: MULTIVITAMINS WITH MINERALS, THERAPEUTIC TABLET PO SCH (08:44)
[2019-04-20] MEDS: FOLIC ACID 1 MG TABLET PO SCH (08:44)
[2019-04-20 11:00] VITALS: BP 116/74
[2019-04-20 16:28] VITALS: BP 121/78
[2019-04-20] MEDS: ACETAMINOPHEN 325 MG TABLET PO PRN (16:48)
[2019-04-20] MEDS: MIRTAZAPINE 15 MG TABLET PO SCH (20:23)
[2019-04-20] MEDS: DIVALPROEX SODIUM 500 MG ER TABLET PO SCH (20:23)
[2019-04-20] MEDS: TraZODone HCL 50 MG TABLET PO SCH (20:23)
[2019-04-20] MEDS: GABAPENTIN 400 MG CAPSULE PO SCH (20:24)
[2019-04-21 00:20] VITALS: BP 111/60
[2019-04-21 08:10] VITALS: BP 131/71
[2019-04-21] MEDS: VENLAFAXINE HCL 75 MG ER CAPSULE PO SCH (08:31)
[2019-04-21] MEDS: MULTIVITAMINS WITH MINERALS, THERAPEUTIC TABLET PO SCH (08:31)
[2019-04-21] MEDS: BuPROPion HCL XL 150 MG ER TABLET PO SCH (08:31)
[2019-04-21] MEDS: GABAPENTIN 400 MG CAPSULE PO SCH ×4 (08:31→20:16)
[2019-04-21] MEDS: ATORVASTATIN CALCIUM 40 MG TABLET PO SCH (08:31)
[2019-04-21] MEDS: FOLIC ACID 1 MG TABLET PO SCH (08:31)
[2019-04-21] MEDS: THIAMINE HCL 100 MG TABLET PO SCH ×2 (08:31→16:09)
[2019-04-21] MEDS ORDERED: ARIPiprazole 10 MG TABLET PO SCH (09:00)
[2019-04-21 13:45] VITALS: BP 124/76
[2019-04-21] MEDS: ACETAMINOPHEN 325 MG TABLET PO PRN (13:45)
[2019-04-21 16:18] VITALS: BP 126/76
[2019-04-21] MEDS: DIVALPROEX SODIUM 500 MG ER TABLET PO SCH (20:16)
[2019-04-21] MEDS ORDERED: MIRTAZAPINE 15 MG TABLET PO SCH (21:00)
[2019-04-21] MEDS ORDERED: PRAZOSIN HCL 1 MG CAPSULE PO SCH (21:00)
[2019-04-22 06:47] VITALS: BP 136/77
[2019-04-22 08:26] VITALS: BP 135/66
[2019-04-22] MEDS: THIAMINE HCL 100 MG TABLET PO SCH ×2 (08:32→16:14)
[2019-04-22] MEDS: MULTIVITAMINS WITH MINERALS, THERAPEUTIC TABLET PO SCH (08:32)
[2019-04-22] MEDS: ATORVASTATIN CALCIUM 40 MG TABLET PO SCH (08:32)
[2019-04-22] MEDS: VENLAFAXINE HCL 75 MG ER CAPSULE PO SCH (08:32)
[2019-04-22] MEDS: BuPROPion HCL XL 150 MG ER TABLET PO SCH (08:32)
[2019-04-22] MEDS: GABAPENTIN 400 MG CAPSULE PO SCH ×3 (08:32→16:14)
[2019-04-22] MEDS: FOLIC ACID 1 MG TABLET PO SCH (08:32)
[2019-04-22] MEDS ORDERED: ARIPiprazole 15 MG TABLET PO SCH (09:00)
[2019-04-22 10:43] VITALS: BP 128/76
[2019-04-22] MEDS: ACETAMINOPHEN 325 MG TABLET PO PRN (10:43)
[2019-04-22] MEDS: LORazepam 2 MG TABLET PO PRN (12:33)
[2019-04-22] MEDS ORDERED: ASEN10TA8 SL ×2 (15:47→16:53)
[2019-04-22] MEDS ORDERED: BUPR-47 PO (15:47)
[2019-04-22] MEDS ORDERED: VENL75CA55 PO (15:47)
[2019-04-22] MEDS ORDERED: DIVA500T52 PO ×2 (15:47→16:55)
[2019-04-22] MEDS ORDERED: GABA-533 PO ×2 (15:47→16:55)
[2019-04-22] MEDS ORDERED: MIRT15 PO (15:47)
[2019-04-22] MEDS ORDERED: PRAZ1 PO (15:47)
[2019-04-22 16:10] VITALS: BP 128/76
[2019-04-22] MEDS ORDERED: ISON100L PO (16:49)
[2019-04-22] MEDS ORDERED: PYRI50TA13 PO (16:50)
[2019-04-22] MEDS ORDERED: PRAZ2 PO (16:57)
[2019-04-22] MEDS ORDERED: VENL-67 PO (16:58)
[2019-04-22] MEDS ORDERED: PRAZOSIN HCL 1 MG CAPSULE PO SCH (21:00)
[2019-04-22] MEDS ORDERED: ASENAPINE 10 MG SUBLINGUAL TABLET SL SCH (21:00)
[2019-04-23] MEDS ORDERED: ISONIAZID 300 MG TABLET PO SCH (09:00)
[2019-04-23] MEDS ORDERED: PYRIDOXINE HCL 50 MG TABLET PO SCH (09:00)
[2019-05-17] MEDS ORDERED: ARIPiprazole ER SUSPENSION 400 MG PRE-FILLED DUAL CHAMBER SYRINGE IM SCH (09:00)
== END 2019-04-22 17:55 | disposition home or self-care (01) | DRG 750 ==
LOC: EMS 14:39 → B2S 20:51
PROVIDERS: ADMIT Psychiatry & Neurology Psychiatry; ATTEND Psychiatry & Neurology Psychiatry
DX: F25.9 Schizoaffective disorder, unspecified (principal); R45.851 Suicidal ideations; Z91.19 Patient's noncompliance with other medical treatment and regimen; E78.00 Pure hypercholesterolemia, unspecified; I10 Essential (primary) hypertension; G43.909 Migraine, unspecified, not intractable, without status migrainosus; E78.5 Hyperlipidemia, unspecified; F41.9 Anxiety disorder, unspecified; M19.90 Unspecified osteoarthritis, unspecified site; K21.9 Gastro-esophageal reflux disease without esophagitis; Z98.84 Bariatric surgery status; Z79.899 Other long term (current) drug therapy
CPT/HCPCS: 83036; 84439; 84443; 86592; G0480; J0401

== ENCOUNTER 2020-10-16 17:42 | Emergency (ER) | payer MEDICAID, OTHER ==
[~2020-10-16] VITALS: Ht 160 cm; Wt 80.9 kg
[~2020-10-16 17:42] MED LIST changes: -ARIP400S3 IM; +ASEN10TA10 SL; -ASEN10TA8 SL; +BUPR-49 PO; +DIVA-80 PO; -DIVA500T52 PO; +GABA-1201 PO; -GABA-531 PO; +GABA-533 PO; +ISON100L PO; -LOSA25TA2 PO; +MIRT-89 PO; +PRAZ1 PO; +PRAZ2 PO; +PYRI-14 PO; -RANI150T7 PO; -TRAZ-220 PO; +VENL-67 PO; -VENL-68 PO; +VENL75CA55 PO
[2020-10-16 19:01] LABS: BASOPHILS % (AUTO) 0.4 % (0.0-2.0); EOSINOPHILS % (AUTO) 0.3 % (1.0-6.0); HEMATOCRIT 40.6 % (36-46); HEMOGLOBIN 13.6 g/dL (12.0-16.0); LYMPHOCYTES # (AUTO) 4.4 K/uL (1.0-4.8); LYMPHOCYTES % (AUTO) 39.4 % (22.0-44.0); MEAN CORPUSCULAR HEMOGLOBIN 30.9 pg (26.0-34.0); MEAN CORPUSCULAR HGB CONC 33.5 G/dL (31.0-37.0); MEAN CORPUSCULAR VOLUME 92 fL (80-100); MONOCYTES # (AUTO) 0.6 K/uL (0.1-1.0); MONOCYTES % (AUTO) 5.6 % (2.0-9.0); NEUTROPHILS % (AUTO) 54.3 % (40.0-70.0); PLATELET COUNT (AUTO) 376 K/uL (150-450); RED CELL DISTRIBUTION WIDTH 14.8 % (11.5-14.5)
[2020-10-16 19:11] LABS: CALCIUM, TOTAL 9.1 mg/dL (8.8-10.5); CREATININE 1.09 mg/dL (0.60-1.30); POTASSIUM 3.3 mmol/L (3.5-5.1)
[2020-10-16 19:16] LABS: ALBUMIN 4.1 g/dL (3.4-5.0); BILIRUBIN,TOTAL 0.3 mg/dL (0.1-1.0); TOTAL PROTEIN, SERUM 7.8 g/dL (6.4-8.2)
[2020-10-16] MEDS ORDERED: MIRT30 PO (19:42)
[2020-10-16] MEDS ORDERED: VENL-67 PO (19:42)
[2020-10-16] MEDS ORDERED: ISON300 PO (19:42)
[2020-10-16] MEDS ORDERED: POTASSIUM CHLORIDE 20 MEQ ER TABLET PO ONE (19:45)
[2020-10-16] MEDS ORDERED: ASPIRIN 81 MG CHEWABLE TABLET PO ONE (19:45)
[2020-10-16 21:45] VITALS: BP 125/83
== END 2020-10-16 22:02 | disposition home or self-care (01) ==
LOC: EMS 17:47
DX: R07.2 Precordial pain (principal); F25.9 Schizoaffective disorder, unspecified; F32.9 Major depressive disorder, single episode, unspecified; E78.00 Pure hypercholesterolemia, unspecified; I10 Essential (primary) hypertension; G43.909 Migraine, unspecified, not intractable, without status migrainosus
CPT/HCPCS: 71045; 80053; 84484; 85025; 93005; 99285; 36415-L1; 36415-TC

== ENCOUNTER 2021-05-28 17:56 | Emergency (ER) | payer OTHER ==
[~2021-05-28] VITALS: Ht 160 cm; Wt 89.5 kg
[~2021-05-28 17:56] MED LIST changes: -ASEN10TA10 SL; -BUPR-49 PO; -BUPR-93 PO; +FLUO10CA24 PO; -GABA-1201 PO; -GABA-533 PO; -ISON100L PO; -MIRT-89 PO; -MIRT30 PO; -PRAZ1 PO; -PRAZ2 PO; -PYRI-14 PO; -VENL-67 PO; -VENL75CA55 PO
[2021-05-28 20:55] VITALS: BP 128/74
== END 2021-05-28 20:55 | disposition home or self-care (01) ==
LOC: EMS 18:14
DX: S13.4XXA Sprain of ligaments of cervical spine, initial encounter (principal); M25.512 Pain in left shoulder; K21.9 Gastro-esophageal reflux disease without esophagitis; I11.9 Hypertensive heart disease without heart failure; G43.909 Migraine, unspecified, not intractable, without status migrainosus; V43.52XA Car driver injured in collision with other type car in traffic accident, initial encounter; Y93.89 Activity, other specified; Y92.89 Other specified places as the place of occurrence of the external cause; Y99.8 Other external cause status
CPT/HCPCS: 72040; 99283

== ENCOUNTER 2021-07-12 19:00 | Emergency (ER) | payer OTHER ==
[~2021-07-12] VITALS: Ht 160 cm; Wt 90.9 kg
[2021-07-12] MEDS ORDERED: ACETAMINOPHEN/CODEINE 300-30 MG TABLET PO ONE (19:45)
[2021-07-12] MEDS ORDERED: ONDANSETRON HCL 4 MG TABLET PO ONE (19:45)
[2021-07-12] MEDS ORDERED: KETOROLAC TROMETHAMINE 60 MG/2 ML VIAL IM ONE (19:45)
[2021-07-12 20:00] LABS: BASOPHILS % (AUTO) 0.5 % (0.0-2.0); EOSINOPHILS % (AUTO) 1.2 % (1.0-6.0); HEMATOCRIT 37.2 % (36-46); HEMOGLOBIN 12.4 g/dL (12.0-16.0); LYMPHOCYTES # (AUTO) 3.7 K/uL (1.0-4.8); LYMPHOCYTES % (AUTO) 38.7 % (22.0-44.0); MEAN CORPUSCULAR HGB CONC 33.3 G/dL (31.0-37.0); MEAN CORPUSCULAR VOLUME 90 fL (80-100); MONOCYTES # (AUTO) 0.7 K/uL (0.1-1.0); NEUTROPHILS % (AUTO) 52.6 % (40.0-70.0); PLATELET COUNT (AUTO) 332 K/uL (150-450); RED BLOOD CELL COUNT(AUTO) 4.14 MIL/uL (4.00-5.20); RED CELL DISTRIBUTION WIDTH 14.7 % (11.5-14.5)
[2021-07-12 20:06] LABS: ANION GAP 7 mmol/L (8-16); CALCIUM, TOTAL 8.7 mg/dL (8.8-10.5); CARBON DIOXIDE 27 mmol/L (22-29); CHLORIDE 108 mmol/L (98-107); CREATININE 0.84 mg/dL (0.60-1.30); GLOMERULAR FILTR. RATE CALC > 60 mL/min (>60); GLUCOSE,RANDOM 95 mg/dL (70-110); POTASSIUM 3.5 mmol/L (3.5-5.1); SODIUM SERUM 142 mmol/L (136-145); UREA NITROGEN, BLOOD 18 mg/dL (7-18)
[2021-07-12 20:12] LABS: ALANINE AMINOTRANSFERASE 57 U/L (12-78); ALBUMIN 3.3 g/dL (3.4-5.0); ALKALINE PHOSPHATASE 83 U/L (46-116); ASPARTATE AMINOTRANSFERASE 30 U/L (15-37); BILIRUBIN,TOTAL 0.2 mg/dL (0.1-1.0); LIPASE 144 U/L (73-393)
[2021-07-12] MEDS ORDERED: LORazepam 2 MG TABLET PO ONE (20:30)
[2021-07-12] MEDS ORDERED: IBUP-1554 PO (20:34)
[2021-07-12 20:42] VITALS: BP 137/81
== END 2021-07-12 21:13 | disposition home or self-care (01) ==
LOC: EMS 19:02
DX: R10.2 Pelvic and perineal pain (principal); F25.9 Schizoaffective disorder, unspecified; F41.9 Anxiety disorder, unspecified; I10 Essential (primary) hypertension; K21.9 Gastro-esophageal reflux disease without esophagitis; Z98.890 Other specified postprocedural states; Z79.899 Other long term (current) drug therapy
CPT/HCPCS: 36415; 80053; 83690; 84703; 85025; 96372; 99284; J1885; Q0162

== ENCOUNTER 2022-08-20 18:13 | Emergency (ER) | payer OTHER ==
[~2022-08-20] VITALS: Ht 160 cm; Wt 104.5 kg
[~2022-08-20 18:13] MED LIST changes: -DIVA-80 PO; +DIVA500T53 PO; +IBUP-1554 PO
[2022-08-20 19:46] LABS: BASOPHILS % (AUTO) 0.5 % (0.0-2.0); EOSINOPHILS % (AUTO) 1.6 % (1.0-6.0); HEMATOCRIT 32.9 % (36-46); HEMOGLOBIN 10.4 g/dL (12.0-16.0); LYMPHOCYTES # (AUTO) 3.4 K/uL (1.0-4.8); LYMPHOCYTES % (AUTO) 32.2 % (22.0-44.0); MEAN CORPUSCULAR HEMOGLOBIN 25.6 pg (26.0-34.0); MEAN CORPUSCULAR HGB CONC 31.7 G/dL (31.0-37.0); MEAN CORPUSCULAR VOLUME 81 fL (80-100); MONOCYTES # (AUTO) 0.9 K/uL (0.1-1.0); MONOCYTES % (AUTO) 8.9 % (2.0-9.0); NEUTROPHILS # (AUTO) 6.1 K/uL (1.8-7.7); NEUTROPHILS % (AUTO) 56.8 % (40.0-70.0); PLATELET COUNT (AUTO) 352 K/uL (150-450); RED BLOOD CELL COUNT(AUTO) 4.09 MIL/uL (4.00-5.20); RED CELL DISTRIBUTION WIDTH 18.8 % (11.5-14.5)
[2022-08-20 19:54] LABS: ANION GAP 8 mmol/L (8-16); CALCIUM, TOTAL 8.7 mg/dL (8.8-10.5); CARBON DIOXIDE 30 mmol/L (22-29); CHLORIDE 105 mmol/L (98-107); GLOMERULAR FILTR. RATE CALC > 60 mL/min (>60); GLUCOSE,RANDOM 95 mg/dL (70-110); POTASSIUM 3.6 mmol/L (3.5-5.1); SODIUM SERUM 143 mmol/L (136-145); UREA NITROGEN, BLOOD 13 mg/dL (7-18)
[2022-08-20 20:01] LABS: ALANINE AMINOTRANSFERASE 26 U/L (12-78); ALKALINE PHOSPHATASE 109 U/L (46-116); ASPARTATE AMINOTRANSFERASE 22 U/L (15-37); BILIRUBIN,TOTAL 0.4 mg/dL (0.1-1.0); TOTAL PROTEIN, SERUM 7.4 g/dL (6.4-8.2)
[2022-08-20 20:30] VITALS: BP 129/83
[2022-08-20] MEDS ORDERED: PredniSONE 20 MG TABLET PO ONE (20:45)
[2022-08-20] MEDS ORDERED: CEPH-558 PO (20:53)
== END 2022-08-20 21:12 | disposition home or self-care (01) ==
LOC: EMS 18:14
DX: L03.211 Cellulitis of face (principal); I10 Essential (primary) hypertension; G43.909 Migraine, unspecified, not intractable, without status migrainosus; K21.9 Gastro-esophageal reflux disease without esophagitis; I51.9 Heart disease, unspecified; F25.9 Schizoaffective disorder, unspecified
CPT/HCPCS: 99284; 80053; 85025; 36415; J7512

== ENCOUNTER 2022-08-22 05:06 | Emergency (ER) | payer OTHER ==
[~2022-08-22] VITALS: Ht 160 cm; Wt 104.5 kg
[~2022-08-22 05:06] MED LIST changes: +CEPH-558 PO
[2022-08-22] MEDS ORDERED: IOHEXOL 350 MG/ML 100 ML VIAL ONE (06:46)
[2022-08-22] MEDS ORDERED: SODIUM CHLORIDE 0.9% 100 ML ONE (06:46)
[2022-08-22] MEDS ORDERED: SODIUM CHLORIDE 0.9% 250 ML IV ONE (07:15)
[2022-08-22] MEDS ORDERED: CeFAZolin 1 GM/DEXTROSE 50 ML IV ONE (07:15)
[2022-08-22] MEDS ORDERED: DOXY-354 PO (07:56)
[2022-08-22 08:58] VITALS: BP 132/68
== END 2022-08-22 09:00 | disposition home or self-care (01) ==
LOC: EMS 05:10
DX: L03.211 Cellulitis of face (principal); I11.9 Hypertensive heart disease without heart failure; G43.909 Migraine, unspecified, not intractable, without status migrainosus; F25.9 Schizoaffective disorder, unspecified; E11.9 Type 2 diabetes mellitus without complications; Z98.890 Other specified postprocedural states
CPT/HCPCS: 99285; 96365; 70487; J0690; Q9967; J7050 ×2

== ENCOUNTER 2023-05-26 06:36 | Emergency (ER) | payer OTHER ==
[~2023-05-26] VITALS: Ht 160 cm; Wt 103.6 kg
[~2023-05-26 06:36] MED LIST changes: +DOXY-354 PO
[2023-05-26 06:40] VITALS: BP 142/69; PULSE 62; RESP 20; TEMP 98.2
== END 2023-05-26 10:24 | disposition left against medical advice (07) ==
LOC: EMS 06:37
DX: J32.9 Chronic sinusitis, unspecified (principal); F32.A Depression, unspecified; G43.909 Migraine, unspecified, not intractable, without status migrainosus; I11.9 Hypertensive heart disease without heart failure; Z90.710 Acquired absence of both cervix and uterus; Z98.890 Other specified postprocedural states
CPT/HCPCS: 99281; Z7502